=== PATIENT | male | born 1975 | race Asian ===

== ENCOUNTER 2018-12-25 18:27 | Emergency (ER) | payer OTHER ==
[~2018-12-25] VITALS: Ht 175.3 cm; Wt 72.3 kg
[~2018-12-25 18:27] MED LIST: FLUO40CA7 PO; PAIN MEDICATION PO; QUET200T PO
[2018-12-25 18:34] VITALS: BP 140/96
== END 2018-12-25 22:02 | disposition left against medical advice (07) ==
LOC: EMS 18:30
DX: R11.2 Nausea with vomiting, unspecified (principal); R53.1 Weakness; F41.9 Anxiety disorder, unspecified; F32.9 Major depressive disorder, single episode, unspecified; F17.210 Nicotine dependence, cigarettes, uncomplicated; Z53.21 Procedure and treatment not carried out due to patient leaving prior to being seen by health care provider

== ENCOUNTER 2018-12-26 07:09 | Emergency (ER) | payer OTHER ==
[~2018-12-26] VITALS: Ht 175.3 cm; Wt 70.5 kg
[2018-12-26 07:24] VITALS: BP 162/84
[2018-12-26] MEDS ORDERED: KETOROLAC TROMETHAMINE 60 MG/2 ML VIAL IM ONE (08:00)
[2018-12-26] MEDS ORDERED: QUEtiapine FUMARATE 100 MG TABLET PO ONE (08:00)
== END 2018-12-26 08:44 | disposition home or self-care (01) ==
LOC: EMS 07:10
DX: M79.652 Pain in left thigh (principal); F17.210 Nicotine dependence, cigarettes, uncomplicated; F41.9 Anxiety disorder, unspecified; F32.9 Major depressive disorder, single episode, unspecified; Z79.899 Other long term (current) drug therapy
CPT/HCPCS: 96372; 99283; J1885

== ENCOUNTER 2018-12-26 13:50 | Emergency (ER) | payer OTHER ==
[~2018-12-26] VITALS: Ht 172.7 cm; Wt 65.9 kg
[2018-12-26 14:08] LABS: GLUCOSE,POINT OF CARE 113 MG/DL (70-110)
[2018-12-26] MEDS ORDERED: ACETAMINOPHEN 500 MG TABLET PO ONE (16:00)
[2018-12-26] MEDS ORDERED: KETOROLAC TROMETHAMINE 30 MG/ML VIAL IM ONE (16:00)
[2018-12-26] MEDS ORDERED: CIPROFLOXACIN HCL 250 MG TABLET PO ONE (16:45)
[2018-12-26 16:58] LABS: BASOPHILS % (AUTO) 0.6 % (0.0-2.0); EOSINOPHILS % (AUTO) 1.6 % (1.0-6.0); HEMATOCRIT 46.9 % (41-53); HEMOGLOBIN 15.6 g/dL (13.5-17.5); LYMPHOCYTES # (AUTO) 1.6 K/uL (1.0-4.8); LYMPHOCYTES % (AUTO) 18.4 % (22.0-44.0); MEAN CORPUSCULAR HEMOGLOBIN 30.9 pg (26.0-34.0); MEAN CORPUSCULAR HGB CONC 33.3 G/dL (31.0-37.0); MEAN CORPUSCULAR VOLUME 93 fL (80-100); MONOCYTES # (AUTO) 0.8 K/uL (0.1-1.0); MONOCYTES % (AUTO) 9.3 % (2.0-9.0); NEUTROPHILS # (AUTO) 6.2 K/uL (1.8-7.7); NEUTROPHILS % (AUTO) 70.1 % (40.0-70.0); PLATELET COUNT (AUTO) 294 K/uL (150-450); RED BLOOD CELL COUNT(AUTO) 5.06 MIL/uL (4.50-5.90); RED CELL DISTRIBUTION WIDTH 14.5 % (11.5-14.5)
[2018-12-26 16:59] LABS: APPEARANCE,URINE CLEAR (CLEAR); BILIRUBIN,URINE NEGATIVE (NEGATIVE); GLUCOSE, URINE (UA) NEGATIVE (NEGATIVE); KETONES,URINE NEGATIVE (NEGATIVE); LEUKOCYTE ESTERASE ,URINE MODERATE (NEGATIVE); NITRATE,URINE NEGATIVE (NEGATIVE); OCCULT BLOOD,URINE NEGATIVE (NEGATIVE); PROTEIN,URINE NEGATIVE (NEGATIVE); UROBILINOGEN,URINE 0.2 mg/dL (<=1.0)
[2018-12-26 17:23] LABS: RBC,URINE None Seen /HPF (0-2)
[2018-12-26 17:24] LABS: BACTERIA,URINE None Seen /HPF (None Seen); SQUAMOUS EPITHELIAL CELL,UR Rare /LPF (None Seen)
[2018-12-26 17:37] VITALS: BP 129/80
== END 2018-12-26 17:39 | disposition home or self-care (01) ==
LOC: EMS 13:50
DX: N45.1 Epididymitis (principal); F41.9 Anxiety disorder, unspecified; F32.9 Major depressive disorder, single episode, unspecified; F17.210 Nicotine dependence, cigarettes, uncomplicated
CPT/HCPCS: 36415; 76870; 81001; 82962; 85025; 87086; 96372; 99284; J1885

== ENCOUNTER 2024-02-06 17:29 | Emergency (ER) | payer OTHER ==
[~2024-02-06] VITALS: Ht 167.6 cm; Wt 76.4 kg
[2024-02-06 17:45] VITALS: TEMP 98
[2024-02-06] MEDS: KETOROLAC TROMETHAMINE 30 MG/ML VIAL IM ONE (18:27)
[2024-02-06] MEDS: BACLOFEN 10 MG TABLET PO ONE (18:27)
[2024-02-06] MEDS: LIDOCAINE 5% TRANSDERMAL PATCH TD ONE (18:27)
[2024-02-06 19:00] VITALS: BP 140/88; PULSE 88; RESP 18
[2024-02-06] MEDS ORDERED: BACL10TA PO (19:26)
[2024-02-06] MEDS ORDERED: HYDR-4723 PO (19:31)
== END 2024-02-06 19:46 | disposition home or self-care (01) ==
LOC: EMS 17:29
DX: M54.31 Sciatica, right side (principal); F41.9 Anxiety disorder, unspecified; F32.A Depression, unspecified; F17.210 Nicotine dependence, cigarettes, uncomplicated; Z98.890 Other specified postprocedural states
CPT/HCPCS: 99283; 96372; J1885